=== PATIENT | male | born 1965 | race Caucasian/White ===

== ENCOUNTER 2022-06-14 11:29 | Outpatient (CLI) | payer BC, SELFPAY ==
[2022-06-14 21:26] LABS: Albumin* 4.1 g/dL (3.3-5.0); Chloride* 105 mmol/L (96-114); Sodium* 137 mmol/L (135-149)
[2022-06-14 21:27] LABS: Potassium* 4.3 mmol/L (3.6-5.1)
[2022-06-14 21:29] LABS: Estimated Glomerular Filt Rate 88 ml/min
[2022-06-14 21:30] LABS: Alanine Aminotransferase* 17 U/L (4-50); Alkaline Phosphatase* 56 U/L (40-150); Aspartate Amino Transferase* 26 U/L (12-35); Bilirubin Total* 0.4 mg/dL (0.1-1.5); Blood Urea Nitrogen* 20 mg/dL (7-30); Carbon Dioxide* 26 mmol/L (20-32); Glucose* 84 mg/dL (60-115); Total Protein* 6.3 g/dL (6.0-8.3)
[2022-06-14 21:34] LABS: C Reactive Protein* < 0.5 mg/dL (0.5-1.0)
== END 2022-06-14 11:30 | disposition home or self-care (01) ==
PROVIDERS: PCP Family Medicine; Visit Provider Family Medicine
DX: R51.9 Headache, unspecified (principal)
CPT/HCPCS: 80053; 84443; 86140; 86618

== ENCOUNTER 2022-06-27 07:56 | Outpatient (CLI) | payer BC, SELFPAY ==
--- NOTE | 2022-06-27 08:00 | CRLHL7_ITS ---
For Patients: As a result of the Century Cures Act, medical imaging exams and procedure reports are released immediately into your electronic medical record. You may view this report before your referring provider. If you have questions, please contact your health care provider. INDICATION: Headache. TECHNIQUE: CT head without contrast. COMPARISON: None. FINDINGS: CSF spaces: Within normal limits for age. Brain parenchyma and extra-axial spaces: The saunders-white differentiation is normal. No sign of mass, hemorrhage, or midline shift. No extra-axial fluid collection. Skull base and calvarium: The visualized paranasal sinuses and mastoid air cells demonstrate no acute or significant findings. The visualized orbits are grossly unremarkable. No skull fractures. IMPRESSION: Unremarkable noncontrast head CT. Please note that all CT scans at this facility use dose modulation, iterative reconstruction, and/or weight-based dosing when appropriate to reduce radiation dose to as low as reasonably achievable. Dictated by Govind Leblanc MD @ 06/27/2022 8:36:54 AM (Electronically Signed)
== END 2022-06-27 07:57 | disposition home or self-care (01) ==
LOC: CT 07:57
PROVIDERS: PCP Family Medicine; Visit Provider Family Medicine
DX: R51.9 Headache, unspecified (principal)
CPT/HCPCS: 70450